=== PATIENT | female | born 1945 | race Caucasian/White ===

== ENCOUNTER → 2022-12-29 | Outpatient (CLI) | payer MEDICARE, OTHER | LOC: RAD 13:09 | PROVIDERS: ATTEND Pain Medicine Interventional Pain Medicine | DX: M54.16 Radiculopathy, lumbar region (principal); Z53.9 Procedure and treatment not carried out, unspecified reason ==

== ENCOUNTER → 2022-12-29 | Outpatient (CLI) | payer MEDICARE, OTHER ==
--- NOTE | 2022-12-29 18:02 | Diagnostic Imaging Report ---
LUMBOSACRAL SPINE 4 VIEWS OR > INDICATION: Back pain. COMPARISON: None available. TECHNIQUE: Four views of the lumbar spine were obtained including lateral flexion and extension. FINDINGS: There is dextroscoliosis of the lumbar spine with apex at L3-L4. No spondylolisthesis of lumbar spine in neutral position. With flexion and extension, there is no dynamic instability. Gdihjgtw-ri-nhikmh disc space narrowing at L2-L3 and L3-L4. There are also less advanced degenerative changes at the other intervertebral levels. Facet osteoarthritis is present. SI joints are normal in appearance. Atherosclerotic calcifications of the aorta. IMPRESSION: 1. No spondylolisthesis or dynamic instability in the lumbar spine. 2. 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 Dictated by: Dictated on workstation # [id number]
== END ==
LOC: RAD 13:17
PROVIDERS: ATTEND Pain Medicine Interventional Pain Medicine
DX: M51.16 Intervertebral disc disorders with radiculopathy, lumbar region (principal); M41.86 Other forms of scoliosis, lumbar region
CPT/HCPCS: 72110